=== PATIENT | male | born 1960 | race African-American/Black ===

== ENCOUNTER → 2021-02-04 | Outpatient (CLI) | payer MEDICAID ==
[~2021-02-04] MED LIST: BUMEX2 MG PO; COZAAR 50 MG TA50 M1 PO; PLAVIX 75 MG TA75 MG PO; SPIRONOLACTONE25 MG PO; TERAZOSIN HCL10 MG PO; VITAMIN D310 MC2 PO; XARELTO10 MG PO
== END ==
LOC: M.MRI 11:26
PROVIDERS: ATTEND Orthopaedic Surgery
DX: S83.241A Other tear of medial meniscus, current injury, right knee, initial encounter (principal); M17.11 Unilateral primary osteoarthritis, right knee; M23.91 Unspecified internal derangement of right knee; X58.XXXA Exposure to other specified factors, initial encounter; Y92.89 Other specified places as the place of occurrence of the external cause; Y93.89 Activity, other specified; Y99.8 Other external cause status

== ENCOUNTER → 2021-03-05 | Outpatient (CLI) | payer MEDICAID ==
[~2021-03-05] MED LIST changes: -XARELTO10 MG PO
[2021-03-05 10:31] LABS: ABSOLUTE EOSINOPHILS 0.1 thou/uL (0.0-0.7); ABSOLUTE LYMPHOCYTES 1.1 thou/uL (0.8-5.3); ABSOLUTE MONOCYTES 0.3 thou/uL (0.0-1.2); ABSOLUTE NEUTROPHILS 3.7 thou/uL (1.6-8.1); BASOPHILS 0.7 %; EOSINOPHILS 2.8 %; HEMATOCRIT 42.3 % (42.0-52.0); HEMOGLOBIN 14.5 gm/dL (14.0-18.0); LYMPHOCYTES 21.4 %; MCH 31.9 pg (26.0-34.0); MCHC 34.3 g/dL (28.0-37.0); MCV 92.9 fL (80.0-100.0); MONOCYTES 5.9 %; MPV 9.3 fl. (7.2-11.1); NUCLEATED RBCS 0 /100WBC; PLATELET COUNT* 195 thou/uL (150-400); POLYS 69.2 %; RBC 4.55 mil/uL (4.50-6.00); RDW-CV 13.5 % (10.5-14.5); WBC 5.3 thou/uL (4.0-11.0)
[2021-03-05 10:35] LABS: URINE BILIRUBIN NEGATIVE (Negative); URINE BLOOD NEGATIVE (Negative); URINE CLARITY CLEAR; URINE COLOR YELLOW; URINE GLUCOSE-RANDOM NEGATIVE (Negative); URINE KETONES NEGATIVE (Negative); URINE LEUKOCYTES-REFLEX NEGATIVE (Negative); URINE NITRITE-REFLEX NEGATIVE (Negative); URINE PROTEIN 2+ (Negative); URINE SPECIFIC GRAVITY 1.025 (1.005-1.030); URINE UROBILINOGEN 0.2 E.U./dl (0.2-1.0)
[2021-03-05 10:44] LABS: SQUAMOUS NONE SEEN /LPF (0-3)
[2021-03-05 10:45] LABS: CASTS None Seen /LPF (None Seen); CRYSTALS None Seen /LPF (None Seen); MUCUS None Seen strn/LPF (None Seen); URINE RBC None Seen /HPF (0-2); URINE WBC-REFLEX 0-5 Rare /HPF (0-5)
[2021-03-05 11:07] LABS: PROTIME 10.5 Seconds (9.20-11.50)
--- NOTE | 2021-03-05 11:20 | EKG ---
[place] [address] ELECTROCARDIOGRAM REPORT Name: SHADY ROMERO Room: [facility]#: [id number] Admission: 03/05/21 Attend Phys: Kvng Chowdary, Discharge: Date of : 62 Date of Service: 03/05/21 [facility] Report #: [id number] THIS REPORT FOR: //name// [facility] Test Date: 2021-03-05 Test Time: 10:37:59 Pat Name: SHADY ROMERO Department: Room: Gender: Disability Insurance Claim Examiner: Indigo VELASQUEZ RN : 1960 Requested By: Kvng Chowdary Order Number: [id number] Blanca MD: Sharath Cook Measurements Intervals [place] Rate: 64 P: 12 OR: 235 QRS: -35 QRSD: 101 T: 63 QT: 432 QTc: 446 Interpretive Statements Sinus rhythm poor r wave progression Prolonged OR interval Inferior infarct, old Baseline wander in lead(s) V6 No previous ECG available for comparison Electronically Signed On 03-05-2021 11:20:42 CDT by Sharath Cook [email or web address] <ELECTRONICALLY SIGNED> By: Sharath Cook MD, FACC 03/05/21 1120 1037 1037 Sharath Cook MD, [facility] /EPI
[2021-03-05 11:32] LABS: CREATININE 2.8 mg/dL (0.6-1.3); TOTAL BILIRUBIN 0.9 mg/dL (<0.1-1.0); TOTAL PROTEIN 7.7 g/dL (6.4-8.2)
== END ==
LOC: M.LAB 05:30
PROVIDERS: ATTEND Orthopaedic Surgery
DX: Z01.818 Encounter for other preprocedural examination (principal); Z01.812 Encounter for preprocedural laboratory examination; M17.11 Unilateral primary osteoarthritis, right knee

== ENCOUNTER 2021-03-11 05:42 | Observation (INO) | payer MEDICAID ==
[~2021-03-11] VITALS: Ht 193 cm; Wt 113.4 kg
--- NOTE | ~2021-03-11 | OP ---
[address] [address] OPERATIVE REPORT Name: SHADY ROMERO Room: [address] Eri Kaye#: [id number] Admission: 03/11/21 Attend Phys: Chidi Norton MD Discharge: Date of : 62 Report #: [id number] THIS REPORT FOR: cc: [facility] - Clinic physician unknown [facility] - Clinic physician unknown Kvgn Chowdary II, DO ~ DATE OF SURGERY: 03/11/2021 PREOPERATIVE DIAGNOSIS: Right knee osteoarthritis. POSTOPERATIVE DIAGNOSIS: Right knee osteoarthritis. PROCEDURE: Right total knee arthroplasty. SURGEON: Kvng Chowdary II, DO UI SOFTWARE DEVELOPER: JOHN Levy ANESTHESIA: Per operative record. ESTIMATED BLOOD LOSS: Minimal. ANTIBIOTICS: Per operative record. DRAINS: None. COMPLICATIONS: None. CONDITION: The patient stable to recovery room. DESCRIPTION OF PROCEDURE: The patient was taken to the operative suite, placed supine on the operating table, given appropriate anesthesia. A well-padded tourniquet was applied to the affected upper thigh, which was inflated to 300 mmHg after gravity exsanguination. The operative knee was sterilely prepped and draped. Surgery began by midline incision. This was carried down to subcutaneous tissues. A medial parapatellar arthrotomy was performed and carried down to bone. Patella was then everted and excess soft tissue was removed from the femur. Femoral cutting block was then applied, checked with a drop marguerite for rotational alignment, pinned in appropriate position and appropriate cuts were made. A 4-in-1 cutting block was then applied, checked for rotational alignment, pinned in appropriate position and appropriate cuts were made. The tibia was then exposed. Excess meniscus was removed. Retractor was placed along the collateral ligaments. The tibial cutting block was then applied, pinned in appropriate position, checked with a drop marguerite for rotational alignment and slope and appropriate cut was made. Tibial bone was removed. The tibial baseplate was then applied, checked [place] [address] OPERATIVE REPORT Name: SHADY ROMERO Room: [address] M.R.#: [id number] Admission: 03/11/21 Attend Phys: Chidi Norton MD Discharge: Date of : 62 Report #: [id number] drop marguerite, pinned in appropriate position. Femur was then applied and box cut was reamed. This was then trialed with appropriate spacer, which showed excellent fit and fill and excellent stability of the knee through all range of motion. The patella was reamed in appropriate fashion and sized to appropriate size. Three peg holes were drilled and it was then trialed and shown to have excellent flexion, extension, excellent tracking patella within the groove. These trials were removed. The tibia was punched in appropriate fashion. Bone ends were cleansed with Pulsavac irrigation and cement was mixed, applied to final implants. These were then malleted into position and held the knee in extension and compressed to allow cement to cure. After it cured, excess was removed utilizing Clayton and osteotome. Wound was then copiously irrigated and the final spacer was then malleted in position. Tourniquet was deflated. Hemostasis was maintained with electrocautery. Pain cocktail was injected. Capsule was closed with 2 FiberWire and 1 Vicryl in interrupted fashion. Skin was closed with 2-0 Vicryl and running 3-0 Monocryl. Dermabond dressing was applied. Tono wrap and PolarCare were applied. The patient was transported to recovery room in stable condition. COUNTS: Correct. By: 04 36Kvng Chowdary II, DO /nt
[2021-03-11 07:43] LABS: CALCIUM 8.9 mg/dL (8.5-10.1); CREATININE 2.9 mg/dL (0.6-1.3)
[2021-03-11 13:21] VITALS: BP 144/60
[2021-03-11 15:39] VITALS: BP 132/72
[2021-03-11 21:00] VITALS: BP 179/83
[2021-03-11 23:33] VITALS: BP 164/78
[2021-03-12 04:39] VITALS: BP 139/60
[2021-03-12 06:15] LABS: HEMOGLOBIN 11.7 gm/dL (14.0-18.0)
[2021-03-12 08:10] VITALS: BP 157/73
[2021-03-12 11:53] VITALS: BP 153/70
[2021-03-12] MEDS ORDERED: XARELTO10 MG PO (12:38)
[2021-03-12 14:43] VITALS: BP 153/70
[2021-03-12 16:48] VITALS: BP 153/70
== END 2021-03-12 16:35 | disposition home or self-care (01) ==
LOC: M.ORTHSURG 05:42 → M.TBA 06:58 → M.3W 07:32 → M.ORTHSURG 15:46 → M.3W 03-12 16:35
PROVIDERS: Anesthesiology; Orthopaedic Surgery; ADMIT Internal Medicine; ATTEND Internal Medicine
DX: M17.11 Unilateral primary osteoarthritis, right knee (principal); Z20.822 Contact with and (suspected) exposure to COVID-19; I25.5 Ischemic cardiomyopathy; E11.22 Type 2 diabetes mellitus with diabetic chronic kidney disease; N18.4 Chronic kidney disease, stage 4 (severe); I50.9 Heart failure, unspecified; G47.33 Obstructive sleep apnea (adult) (pediatric); E11.40 Type 2 diabetes mellitus with diabetic neuropathy, unspecified; Z86.73 Personal history of transient ischemic attack (TIA), and cerebral infarction without residual deficits; Z85.46 Personal history of malignant neoplasm of prostate; Z79.899 Other long term (current) drug therapy; Z87.891 Personal history of nicotine dependence